=== PATIENT | female | born 1945 | race Hispanic/Latino ===

== ENCOUNTER 2017-07-22 10:15 | Outpatient (CLI) | payer MEDICARE | END 2017-07-22 10:16 | disposition home or self-care (01) | LOC: BICMAMMO 10:15 | PROVIDERS: ATTEND Family Medicine | DX: Z12.31 Encounter for screening mammogram for malignant neoplasm of breast (principal) | CPT/HCPCS: 77063; 77067 ==

== ENCOUNTER 2018-07-23 09:33 | Outpatient (CLI) | payer MEDICARE ==
--- NOTE | 2018-07-23 10:46 | MMO ---
Bilateral MAMMO Bilat Screen [facility]. CLINICAL HISTORY: Patient is 73 years old and is seen for screening. The patient has no family history of breast cancer. The patient has no personal history of cancer. The patient has a history of left Excisional Biopsy at an unknown age - benign. VIEWS: The views performed were: bilateral craniocaudal with tomosynthesis and bilateral mediolateral oblique with tomosynthesis. FILMS COMPARED: The present examination has been compared to prior imaging studies performed at [facility] on 07/22/2017, and at [facility] on 05/21/2012, 05/26/2014, 06/04/2015 and 06/30/2016. MAMMOGRAM FINDINGS: There are scattered fibroglandular densities. There are stable benign appearing calcifications seen in both breasts. There are also vascular calcifications. There are no suspicious masses, suspicious calcifications, or new areas of architectural distortion. IMPRESSION: THERE IS NO MAMMOGRAPHIC EVIDENCE OF MALIGNANCY. A ROUTINE FOLLOW-UP MAMMOGRAM IN 1 YEAR IS RECOMMENDED. THE RESULTS OF THIS EXAM WERE SENT TO THE PATIENT. ACR BI-RADS Category 2 - Benign finding MAMMOGRAPHY NOTE: 1. A negative mammogram report should not delay a biopsy if a dominant of clinically suspicious mass is present. 2. Approximately 10% to 15% of breast cancers are not detected by mammography. 3. Adenosis and dense breasts may obscure an underlying neoplasm.
== END 2018-07-23 09:34 | disposition home or self-care (01) ==
LOC: BICMAMMO 09:33
PROVIDERS: ATTEND Family Medicine
DX: Z12.31 Encounter for screening mammogram for malignant neoplasm of breast (principal)
CPT/HCPCS: 77063; 77067

== ENCOUNTER 2019-02-25 05:48 | Day surgery (SDC) | payer MEDICARE ==
[2019-02-24 08:14] VITALS: BMI 30.9
[2019-02-25] MEDS ORDERED: Levofloxacin 500 mg/D5W 100 ml Premix Bag ONE (06:39)
[2019-02-25 06:40] LABS: #Basophils 0.1 thou/uL (0.0-0.2); #Eosinphils 0.2 thou/uL (0.0-0.7); #Monocytes 0.7 thou/uL (0.11-0.59); #Neutrophils 6.7 thou/uL (1.40-6.50); %Basophils 0.7 % (0.0-1.0); %Eosinophils 1.9 % (0.0-10.0); %Lymphocytes 20.4 % (21.0-51.0); %Monocytes 7.7 % (0.0-10.0); %Neutrophils 69.3 % (42.0-75.0); Mean Corpuscular HGB CONC 34.2 g/dL (32.0-36.0); Mean Corpuscular Hemoglobin 29.1 pg (27.0-31.0); Mean Corpuscular Volume 85.1 fL (78.0-98.0); Mean Platelet Volume 5.7 fL (7.4-10.4); Platelet Count 286 thou/uL (130-400); RBC Distribution Width 11.9 % (11.5-14.5); Red Blood Cell (RBC) Count 3.76 mill/uL (4.20-5.40); White Blood Cell (WBC) Count 9.7 thou/uL (4.8-10.8)
[2019-02-25] MEDS ORDERED: Fentanyl 100 MCG/2 ML VIAL ONE ×2 (06:51→10:09)
[2019-02-25] MEDS ORDERED: Bupivacaine HCl 0.25%/Epi 0.0005/PF 10 ML VIAL FS ONE (07:00)
[2019-02-25 07:06] LABS: ALT (SGPT) 22 U/L (8-55); AST (SGOT) 19 U/L (5-34); Albumin 4.6 g/dL (3.4-4.8); Alkaline Phosphatase 83 U/L (40-110); Anion Gap 15 mmol/L (10-20); BUN (Urea Nitrogen) 21 mg/dL (9.8-20.1); Bilirubin, Total 0.3 mg/dL (0.2-1.2); Calc. Creatinine Clearance 50 mL/min (70-130); Calcium 9.4 mg/dL (7.8-10.44); Carbon Dioxide 26 mmol/L (23-31); Chloride 102 mmol/L (98-107); Estimated GFR-MDRD 45; Glucose 168 mg/dL (83-110); Potassium 3.8 mmol/L (3.5-5.1); Protein, Total 7.6 g/dL (6.0-8.3); Sodium 139 mmol/L (136-145)
[2019-02-25] MEDS ORDERED: Famotidine/PF 20 mg/2ml Vial ONE (07:11)
[2019-02-25] MEDS ORDERED: Ondansetron PF 4 MG/2 ML Vial ONE ×2 (07:12→10:51)
[2019-02-25] MEDS ORDERED: SUGAMMADEX SODIUM 200 MG/2 ML VIAL ONE (08:36)
[2019-02-25] MEDS ORDERED: Succinylcholine Chloride 20 MG/ML 10 ml SYRINGE FS ONE (10:51)
[2019-02-25] MEDS ORDERED: Lidocaine 1% PF 5 ML VIAL ONE (10:51)
[2019-02-25] MEDS ORDERED: Rocuronium Bromide 10 MG/ML (10ML VIAL) ONE (10:51)
[2019-02-25] MEDS ORDERED: PROPOFOL 200 MG/20 ML VIAL ONE (10:51)
--- NOTE | 2019-02-25 14:20 | EKG ---
Test Reason : PREOP Blood Pressure : / mmHG Vent. Rate : 087 BPM Atrial Rate : 087 BPM P-R Int : 188 ms QRS Dur : 072 ms QT Int : 382 ms P-R-T Axes : 029 017 022 degrees QTc Int : 459 ms Normal sinus rhythm Normal ECG When compared with ECG of 03-APR-2003 06:50, No significant change was found Confirmed by DR. Richelle ALONZO ([id number]) on 02/25/2019 2:19:25 PM Referred By: MAYDA Confirmed By:DR. Richelle ALONZO
--- NOTE | 2019-03-02 15:24 | PDOC.OP ---
Operative Note - Operative Note Operative Note: DATE OF PROCEDURE: 02/25/2019 PROCEDURES: Laparoscopic cholecystectomy. SURGEON: Constantin White M.D. PREOPERATIVE DIAGNOSIS: Symptomatic gallstones POSTOPERATIVE DIAGNOSIS: Symptomatic gallstones FINDINGS: Chronically distended gallbladder with stones and sludge. Fatty liver. HISTORY: Patient with symptoms of biliary colic. Laparoscopic cholecystectomy was recommended for symptomatic relief. Preoperative LFTs were normal and bile duct was normal caliber on preoperative imaging. PROCEDURE: After informed consent was obtained and appropriate preoperative antibiotics were administered, the patient was taken to the operating room and placed in the supine position and general endotracheal anesthesia was administered. The stomach was decompressed with an OG tube and the abdomen was prepped and draped in standard sterile fashion. Local anesthesia was infused to the skin and subcutaneous tissues at the umbilical level. A transverse skin incision was made. The fascia was elevated and a Veress needle was placed into the abdominal cavity without difficulty. Opening pressure was less than 5 and carbon dioxide gas easily insufflated to an intra-abdominal pressure of 15, which the patient tolerated well. The Veress needle was withdrawn and a Crabtree port advanced under direct vision. The abdominal cavity was carefully examined. There was no evidence of Veress needle or of trocar injury. Local anesthesia was infused to the skin and subcutaneous tissues at the epigastric, right upper quadrant, and right lateral abdominal sites and trocars were placed under direct vision of the laparoscope. The fundus of the gallbladder was grasped and retracted superiorly. The infundibulum was grasped and retracted laterally. The serosa was stripped inferiorly at the level of the neck of the gallbladder exposing the cystic duct and artery which were traced clearly to their insertion in the gallbladder. Critical view of safety was obtained and the cystic duct and artery were clipped and divided between clips. The gallbladder was then dissected free of the gallbladder bed using hook electrocautery. Prior to complete removal of the gallbladder from the gallbladder bed, the area of the cystic duct and artery stumps was examined. The clips were in good position completely across these structures and there was no bleeding and no leakage of bile. The gallbladder was then placed into an EndoCatch bag and drawn out through the epigastric incision. The epigastric trocar was replaced and the operative site easily irrigated to clear. There was no significant bleeding or spillage of bile. The epigastric trocar was removed and the fascia closed under direct laparoscopic vision with a 0 Vicryl suture on a GraNee needle in a [id number] manner with excellent technical result. The right upper quadrant and right lateral abdominal trocars were removed and hemostasis verified. Carbon dioxide gas was allowed to desufflate through the umbilical trocar which was then removed. The skin incisions were closed with 4- 0 subcuticular Monocryl sutures and Dermabond dressings were placed. The patient was extubated and taken to the recovery room in good condition. There were no complications. ESTIMATED BLOOD LOSS: Minimal. SPECIMEN : Gallbladder and contents.
== END 2019-02-25 11:45 | disposition home or self-care (01) ==
LOC: SDC 05:48
PROVIDERS: ATTEND Surgery
PROC: 0FT44ZZ Resection of Gallbladder, Percutaneous Endoscopic Approach (ICD-10-PCS; principal; 2019-02-25)
DX: K80.10 Calculus of gallbladder with chronic cholecystitis without obstruction (principal); K76.0 Fatty (change of) liver, not elsewhere classified; E11.9 Type 2 diabetes mellitus without complications; I10 Essential (primary) hypertension; E78.5 Hyperlipidemia, unspecified; Z79.82 Long term (current) use of aspirin; Z79.84 Long term (current) use of oral hypoglycemic drugs; Z79.899 Other long term (current) drug therapy; Z88.0 Allergy status to penicillin; Z88.1 Allergy status to other antibiotic agents; Z91.041 Radiographic dye allergy status
CPT/HCPCS: 36415; 80053; 85025; 88304; 93005; 93010; J0131; J1956; J2001; J2405; J2704; J3010; S0028

== ENCOUNTER 2019-08-16 15:14 | Outpatient (CLI) | payer MEDICARE ==
--- NOTE | 2019-08-16 15:37 | MMO ---
Bilateral MAMMO Bilat Screen [facility]. CLINICAL HISTORY: Patient is 74 years old and is seen for screening. The patient has no family history of breast cancer. The patient has no personal history of cancer. The patient has a history of left Excisional Biopsy at an unknown age - benign. VIEWS: The views performed were: bilateral craniocaudal with tomosynthesis and bilateral mediolateral oblique with tomosynthesis. FILMS COMPARED: The present examination has been compared to prior imaging studies performed at [facility] on 07/22/2017 and 07/23/2018, and at [facility] on 06/04/2015 and 06/30/2016. This study has been interpreted with the assistance of computer-aided detection. MAMMOGRAM FINDINGS: There are scattered fibroglandular densities. There are no suspicious masses, suspicious calcifications, or new areas of architectural distortion. IMPRESSION: THERE IS NO MAMMOGRAPHIC EVIDENCE OF MALIGNANCY. A ROUTINE FOLLOW-UP MAMMOGRAM IN 1 YEAR IS RECOMMENDED. THE RESULTS OF THIS EXAM WERE SENT TO THE PATIENT. ACR BI-RADS Category 1 - Negative MAMMOGRAPHY NOTE: 1. A negative mammogram report should not delay a biopsy if a dominant of clinically suspicious mass is present. 2. Approximately 10% to 15% of breast cancers are not detected by mammography. 3. Adenosis and dense breasts may obscure an underlying neoplasm. Reported by: SILVANA MAGUIRE MD Electonically Signed: [id number]
== END 2019-08-16 15:15 | disposition home or self-care (01) ==
LOC: BICMAMMO 15:14
PROVIDERS: ATTEND Family Medicine
DX: Z12.31 Encounter for screening mammogram for malignant neoplasm of breast (principal); Z91.89 Other specified personal risk factors, not elsewhere classified
CPT/HCPCS: 77063; 77067

== ENCOUNTER 2020-05-11 19:54 | Inpatient (IN) | payer MEDICARE ==
[2020-05-11 20:48] LABS: Band 17 % (5-11); Hemoglobin 10.7 g/dL (12.0-16.0); Lymphocytes 8 % (21-51); MDiff Complete? YES; Mean Corpuscular HGB CONC 34.9 g/dL (32.0-36.0); Mean Corpuscular Hemoglobin 29.8 pg (27.0-31.0); Mean Corpuscular Volume 85.4 fL (78.0-98.0); Mean Platelet Volume 6.1 fL (7.4-10.4); Monocytes 3 % (0-10); Neutrophil 71 % (42-75); Platelet Count 250 thou/uL (130-400); Platelet Morphology Comment Appears Adequate; RBC Distribution Width 12.1 % (11.5-14.5); White Blood Cell (WBC) Count 11.3 thou/uL (4.8-10.8)
[2020-05-11 20:49] LABS: ALT (SGPT) 18 U/L (8-55); AST (SGOT) 32 U/L (5-34); Albumin 3.7 g/dL (3.4-4.8); Alkaline Phosphatase 55 U/L (40-110); Anion Gap 18 mmol/L (10-20); BUN (Urea Nitrogen) 24 mg/dL (9.8-20.1); Bilirubin, Total 0.4 mg/dL (0.2-1.2); Calc. Creatinine Clearance 0 mL/min (70-130); Calcium 8.2 mg/dL (7.8-10.44); Carbon Dioxide 20 mmol/L (23-31); Chloride 95 mmol/L (98-107); Globulin 3.3 g/dL (2.4-3.5); Glucose 169 mg/dL (83-110); Potassium 3.7 mmol/L (3.5-5.1); Sodium 129 mmol/L (136-145)
[2020-05-11] MEDS ORDERED: Albuterol Sulfate 2.5 mg/3 ml Neb ONE (20:50)
[2020-05-11] MEDS ORDERED: Albuterol Sulfate 2.5 mg/3 ml Neb NEB PRN (21:39)
[2020-05-11 23:18] LABS: Lactic Acid 1.3 mmol/L (0.5-2.2)
[2020-05-11] MEDS ORDERED: Ondansetron PF 4 MG/2 ML Vial IVP PRN (23:32)
[2020-05-11] MEDS ORDERED: Ondansetron ODT 4 MG TAB PO PRN (23:32)
[2020-05-12 00:59] VITALS: BMI 30.9
[2020-05-12] MEDS ORDERED: Albuterol 200 PUFF (6.7GM INHALER) INH PRN ×2 (02:00→04:19)
[2020-05-12 02:16] LABS: #Lymphocytes 0.9 thou/uL (1.20-3.40); #Monocytes 0.4 thou/uL (0.11-0.59); #Neutrophils 9.4 thou/uL (1.40-6.50); %Eosinophils 0.1 % (0.0-10.0); %Lymphocytes 8.6 % (21.0-51.0); %Monocytes 3.3 % (0.0-10.0); Hemoglobin 10.4 g/dL (12.0-16.0); Mean Corpuscular HGB CONC 34.5 g/dL (32.0-36.0); Mean Corpuscular Hemoglobin 29.3 pg (27.0-31.0); Mean Corpuscular Volume 85.1 fL (78.0-98.0); Platelet Count 227 thou/uL (130-400); Red Blood Cell (RBC) Count 3.56 mill/uL (4.20-5.40); White Blood Cell (WBC) Count 10.7 thou/uL (4.8-10.8)
[2020-05-12 02:55] LABS: Anion Gap 19 mmol/L (10-20); BUN (Urea Nitrogen) 29 mg/dL (9.8-20.1); Calc. Creatinine Clearance 39 mL/min (70-130); Calcium 8.3 mg/dL (7.8-10.44); Carbon Dioxide 19 mmol/L (23-31); Chloride 94 mmol/L (98-107); Glucose 234 mg/dL (83-110); Potassium 3.7 mmol/L (3.5-5.1); Sodium 128 mmol/L (136-145)
[2020-05-12] MEDS ORDERED: Dextrose 5% in Water 1,000 ML IV PRN ×2 (03:20→14:29)
[2020-05-12] MEDS ORDERED: Dextrose 50% Abboject 50 ML SYRINGE SLOW IVP PRN ×2 (03:20→14:29)
[2020-05-12] MEDS: Albuterol 200 PUFF (6.7GM INHALER) INH SCH ×5 (06:21→22:52)
[2020-05-12] MEDS: cefTRIAXone\\ROCEPHIN 1 GM in Sodium Chloride 0.9% 100 ML IVPB SCH (06:21)
[2020-05-12] MEDS: Azithromycin 500 MG in Sodium Chloride 0.9% 250 ML 250 ML IVPB SCH (06:22)
[2020-05-12] MEDS: Zinc Sulfate 220 MG CAP PO SCH (07:54)
[2020-05-12] MEDS: Ascorbic Acid 500 mg Chewable Tablet PO SCH (07:54)
[2020-05-12] MEDS: Dexamethasone 4 mg/ml Vial SLOW IVP SCH (07:54)
[2020-05-12] MEDS: Cholecalciferol (Vitamin D3) 400 UNITS TAB PO SCH (07:54)
[2020-05-12] MEDS ORDERED: REMDESIVIR (EUA) 200 MG in Sodium Chloride 0.9% 250 ML 210 ML IV SCH (09:00)
[2020-05-12] MEDS ORDERED: Enoxaparin Sodium 40 MG/0.4 ML SYRINGE SC SCH (09:00)
[2020-05-12] MEDS ORDERED: Dexamethasone 4 mg/ml Vial SLOW IVP SCH (09:00)
[2020-05-12] MEDS ORDERED: methylPREDNISolone Sod Succ 40 MG VIAL IVP SCH (09:00)
[2020-05-12] MEDS: Acetaminophen 325 MG TAB PO PRN (10:58)
[2020-05-12] MEDS: HumaLOG 300 UNITS/3 ML VIAL SC PRN ×2 (13:55→17:15)
[2020-05-12] MEDS ORDERED: Non-Formulary Item 1 EACH (Albuterol Sulfate [Proventil Hfa] 200 PUFF Inh) INH PRN (14:28)
[2020-05-12] MEDS ORDERED: HumaLOG 300 UNITS/3 ML VIAL SC PRN (14:29)
[2020-05-12 14:50] LABS: SARS-CoV-2 NAA Rapid Test DETECTED (NotDetected)
[2020-05-12] MEDS: Atorvastatin Calcium 10 MG TAB PO SCH (21:30)
[2020-05-12] MEDS: Enoxaparin Sodium 80 MG/0.8 ML SYRINGE SC SCH (21:31)
[2020-05-13] MEDS: Acetaminophen 325 MG TAB PO PRN ×3 (00:09→23:55)
[2020-05-13] MEDS: Albuterol 200 PUFF (6.7GM INHALER) INH SCH ×6 (02:26→23:05)
[2020-05-13] MEDS: cefTRIAXone\\ROCEPHIN 1 GM in Sodium Chloride 0.9% 100 ML IVPB SCH (04:15)
[2020-05-13 05:56] LABS: #Basophils 0.4 thou/uL (0.0-0.2); #Lymphocytes 0.7 thou/uL (1.20-3.40); #Monocytes 0.7 thou/uL (0.11-0.59); %Basophils 2.9 % (0.0-1.0); %Eosinophils 0.2 % (0.0-10.0); %Lymphocytes 5.3 % (21.0-51.0); %Monocytes 5.3 % (0.0-10.0); %Neutrophils 86.3 % (42.0-75.0); Hemoglobin 10.5 g/dL (12.0-16.0); Mean Corpuscular HGB CONC 32.6 g/dL (32.0-36.0); Mean Corpuscular Hemoglobin 27.8 pg (27.0-31.0); Mean Corpuscular Volume 85.4 fL (78.0-98.0); Mean Platelet Volume 5.8 fL (7.4-10.4); Platelet Count 324 thou/uL (130-400); RBC Distribution Width 12.2 % (11.5-14.5); Red Blood Cell (RBC) Count 3.78 mill/uL (4.20-5.40); White Blood Cell (WBC) Count 13.9 thou/uL (4.8-10.8)
[2020-05-13 06:06] LABS: D-Dimer Test 3.05 *mcg/mL (0.27-0.43)
[2020-05-13] MEDS: Azithromycin 500 MG in Sodium Chloride 0.9% 250 ML 250 ML IVPB SCH (06:22)
[2020-05-13 06:23] LABS: Anion Gap 18 mmol/L (10-20); BUN (Urea Nitrogen) 23 mg/dL (9.8-20.1); CRP (Inflammatory) 19.77 mg/dL (= or < 0.5); Calc. Creatinine Clearance 54 mL/min (70-130); Calcium 8.6 mg/dL (7.8-10.44); Carbon Dioxide 22 mmol/L (23-31); Chloride 98 mmol/L (98-107); Glucose 159 mg/dL (83-110); Potassium 3.6 mmol/L (3.5-5.1); Sodium 134 mmol/L (136-145)
[2020-05-13] MEDS: HumaLOG 300 UNITS/3 ML VIAL SC PRN ×3 (06:23→17:14)
[2020-05-13] MEDS: Zinc Sulfate 220 MG CAP PO SCH (08:36)
[2020-05-13] MEDS: Ascorbic Acid 500 mg Chewable Tablet PO SCH (08:36)
[2020-05-13] MEDS: Cholecalciferol (Vitamin D3) 400 UNITS TAB PO SCH (08:36)
[2020-05-13] MEDS: Dexamethasone 4 mg/ml Vial SLOW IVP SCH (08:37)
[2020-05-13] MEDS: Enoxaparin Sodium 80 MG/0.8 ML SYRINGE SC SCH ×2 (08:37→23:04)
[2020-05-13] MEDS ORDERED: REMDESIVIR (EUA) 100 MG in Sodium Chloride 0.9% 250 ML 230 ML IV SCH (09:00)
[2020-05-13] MEDS: Atorvastatin Calcium 10 MG TAB PO SCH (23:05)
[2020-05-14] MEDS: Albuterol 200 PUFF (6.7GM INHALER) INH SCH ×6 (02:52→21:30)
[2020-05-14] MEDS: Azithromycin 500 MG in Sodium Chloride 0.9% 250 ML 250 ML IVPB SCH (05:31)
[2020-05-14] MEDS: cefTRIAXone\\ROCEPHIN 1 GM in Sodium Chloride 0.9% 100 ML IVPB SCH (05:31)
[2020-05-14 05:45] LABS: #Basophils 0.4 thou/uL (0.0-0.2); #Monocytes 1.3 thou/uL (0.11-0.59); %Basophils 2.4 % (0.0-1.0); %Eosinophils 0.2 % (0.0-10.0); %Lymphocytes 6.3 % (21.0-51.0); %Monocytes 8.4 % (0.0-10.0); %Neutrophils 82.7 % (42.0-75.0); Hemoglobin 10.9 g/dL (12.0-16.0); Mean Corpuscular Hemoglobin 28.2 pg (27.0-31.0); Mean Corpuscular Volume 85.4 fL (78.0-98.0); Mean Platelet Volume 5.7 fL (7.4-10.4); Platelet Count 386 thou/uL (130-400); RBC Distribution Width 12.1 % (11.5-14.5); Red Blood Cell (RBC) Count 3.87 mill/uL (4.20-5.40); White Blood Cell (WBC) Count 15.7 thou/uL (4.8-10.8)
[2020-05-14 06:25] LABS: Anion Gap 16 mmol/L (10-20); BUN (Urea Nitrogen) 26 mg/dL (9.8-20.1); Calc. Creatinine Clearance 62 mL/min (70-130); Carbon Dioxide 25 mmol/L (23-31); Chloride 100 mmol/L (98-107); Potassium 3.6 mmol/L (3.5-5.1); Sodium 137 mmol/L (136-145)
[2020-05-14 06:26] LABS: Calcium 8.8 mg/dL (7.8-10.44); Glucose 142 mg/dL (83-110)
[2020-05-14 06:53] LABS: D-Dimer Test 4.34 *mcg/mL (0.27-0.43)
[2020-05-14] MEDS: Zinc Sulfate 220 MG CAP PO SCH (07:50)
[2020-05-14] MEDS: Cholecalciferol (Vitamin D3) 400 UNITS TAB PO SCH (07:50)
[2020-05-14] MEDS: Enoxaparin Sodium 80 MG/0.8 ML SYRINGE SC SCH ×2 (07:50→21:20)
[2020-05-14] MEDS: Ascorbic Acid 500 mg Chewable Tablet PO SCH (07:50)
[2020-05-14] MEDS: Dexamethasone 4 mg/ml Vial SLOW IVP SCH (07:50)
[2020-05-14] MEDS ORDERED: hydrALAZINE 20 MG/ML VIAL SLOW IVP PRN (10:34)
[2020-05-14] MEDS: Atorvastatin Calcium 10 MG TAB PO SCH (21:20)
[2020-05-15] MEDS: Acetaminophen 325 MG TAB PO PRN ×3 (02:00→20:15)
[2020-05-15] MEDS: Albuterol 200 PUFF (6.7GM INHALER) INH SCH ×6 (02:10→22:00)
[2020-05-15] MEDS: Enoxaparin Sodium 80 MG/0.8 ML SYRINGE SC SCH ×2 (07:38→20:15)
[2020-05-15] MEDS: Dexamethasone 4 mg/ml Vial SLOW IVP SCH (07:38)
[2020-05-15] MEDS: Ascorbic Acid 500 mg Chewable Tablet PO SCH (07:38)
[2020-05-15] MEDS: Zinc Sulfate 220 MG CAP PO SCH (07:39)
[2020-05-15] MEDS: Cholecalciferol (Vitamin D3) 400 UNITS TAB PO SCH (07:39)
[2020-05-15] MEDS: Lorazepam 0.5 MG TAB PO PRN ×3 (11:29→22:00)
[2020-05-15] MEDS: Atorvastatin Calcium 10 MG TAB PO SCH (20:15)
[2020-05-16] MEDS ORDERED: Morphine 2 MG/ML VIAL SLOW IVP SCH (01:15)
[2020-05-16] MEDS: Lorazepam 2 MG/ML VIAL SLOW IVP PRN ×4 (02:00→15:28)
[2020-05-16] MEDS: Albuterol 200 PUFF (6.7GM INHALER) INH SCH ×5 (02:25→18:02)
[2020-05-16] MEDS: Enoxaparin Sodium 80 MG/0.8 ML SYRINGE SC SCH (11:09)
[2020-05-16] MEDS: Dexamethasone 4 mg/ml Vial SLOW IVP SCH (11:10)
[2020-05-16] MEDS: Ascorbic Acid 500 mg Chewable Tablet PO SCH (12:42)
[2020-05-16] MEDS: Zinc Sulfate 220 MG CAP PO SCH (12:43)
[2020-05-16] MEDS: Cholecalciferol (Vitamin D3) 400 UNITS TAB PO SCH (12:43)
[2020-05-16] MEDS: Metoprolol Tartrate 5 MG/5 ML VIAL IVP SCH ×2 (12:44→18:05)
[2020-05-16] MEDS ORDERED: Lorazepam 2 MG/ML VIAL SLOW IVP PRN (15:43)
[2020-05-16 16:22] LABS: Hemoglobin 11.1 g/dL (12.0-16.0); Mean Corpuscular HGB CONC 33.5 g/dL (32.0-36.0); Mean Corpuscular Hemoglobin 29.4 pg (27.0-31.0); Mean Corpuscular Volume 87.8 fL (78.0-98.0); Mean Platelet Volume 6.4 fL (7.4-10.4); Platelet Count 267 thou/uL (130-400); RBC Distribution Width 12.6 % (11.5-14.5); Red Blood Cell (RBC) Count 3.77 mill/uL (4.20-5.40); White Blood Cell (WBC) Count 25.6 thou/uL (4.8-10.8)
[2020-05-16 16:24] LABS: Anion Gap 23 mmol/L (10-20); BUN (Urea Nitrogen) 48 mg/dL (9.8-20.1); Calc. Creatinine Clearance 45 mL/min (70-130); Calcium 8.8 mg/dL (7.8-10.44); Carbon Dioxide 21 mmol/L (23-31); Chloride 102 mmol/L (98-107); Glucose 314 mg/dL (83-110); Sodium 142 mmol/L (136-145)
[2020-05-16 16:41] LABS: Band 2 % (5-11); Lymphocytes 8 % (21-51); MDiff Complete? YES; Metamyelocyte 2 % (0-0); Monocytes 2 % (0-10); Neutrophil 84 % (42-75); Platelet Morphology Comment Appears Adequate; Polychromasia SLIGHT = 2-3 cells (100X) (0-2/hpf); Reactive Lymphocytes 2 % (0-10)
[2020-05-16 16:52] VITALS: TEMP 97.8
[2020-05-16 19:19] VITALS: BP 175/82
== END 2020-05-16 19:00 | disposition hospice, inpatient (51) | DRG 871 ==
LOC: ERS 19:54 → ERHOLD 21:25 → 2SW 05-12 00:29
PROVIDERS: ADMIT Student in an Organized Health Care Education/Training Program; ATTEND Internal Medicine
PROC: 8E0ZXY6 Isolation (ICD-10-PCS; principal; 2020-05-11)
PROC: 5A09457 Assistance with Respiratory Ventilation, 24-96 Consecutive Hours, Continuous Positive Airway Pressure (ICD-10-PCS; 2020-05-11)
PROC: XW033E5 Introduction of Remdesivir Anti-infective into Peripheral Vein, Percutaneous Approach, New Technology Group 5 (ICD-10-PCS; 2020-05-12)
PROC: XW13325 Transfusion of Convalescent Plasma (Nonautologous) into Peripheral Vein, Percutaneous Approach, New Technology Group 5 (ICD-10-PCS; 2020-05-12)
DX: A41.89 Other specified sepsis (principal); U07.1 COVID-19; J12.82 Pneumonia due to coronavirus disease 2019; J96.01 Acute respiratory failure with hypoxia; E87.1 Hypo-osmolality and hyponatremia; J45.901 Unspecified asthma with (acute) exacerbation; E87.2 Acidosis; R65.20 Severe sepsis without septic shock; Z66 Do not resuscitate; Z51.5 Encounter for palliative care; D64.9 Anemia, unspecified; I10 Essential (primary) hypertension; E78.00 Pure hypercholesterolemia, unspecified; F41.9 Anxiety disorder, unspecified; E11.9 Type 2 diabetes mellitus without complications; Z88.0 Allergy status to penicillin; Z91.041 Radiographic dye allergy status; Z79.84 Long term (current) use of oral hypoglycemic drugs; Z79.51 Long term (current) use of inhaled steroids; Z79.899 Other long term (current) drug therapy; Z90.710 Acquired absence of both cervix and uterus
CPT/HCPCS: 36415; 36416; 36430; 71045; 80048; 80053; 82728; 83605; 83735; 85025; 85379; 85384; 86140; 86141; 86850; 86900; 86901; 87040; 93005; 94640; 94660; 94760; J0360; J0456; J0696; J1100; J1650; J2060; J2270; J3490; J7050; J7611; P9017; U0002

== ENCOUNTER 2020-05-16 19:19 | Inpatient (IN) | payer OTHER ==
[2020-05-16] MEDS ORDERED: Morphine 2 MG/ML VIAL SLOW IVP PRN (19:35)
[2020-05-16] MEDS ORDERED: Bisacodyl 10 MG SUPP PR PRN (19:35)
[2020-05-16] MEDS ORDERED: Lorazepam 2 MG/ML VIAL SLOW IVP PRN ×2 (19:36→19:37)
[2020-05-16 19:44] VITALS: BMI 30.7
[2020-05-16] MEDS ORDERED: Morphine 4 MG/ML VIAL SLOW IVP SCH (20:00)
[2020-05-16] MEDS ORDERED: Lorazepam 2 MG/ML VIAL SLOW IVP SCH (20:00)
[2020-05-16] MEDS: Morphine 4 MG/ML VIAL SLOW IVP PRN ×2 (20:14→20:31)
[2020-05-16 20:38] VITALS: BP 151/78
== END 2020-05-16 21:12 | disposition expired | DRG 951 ==
LOC: 2SW 19:19
PROVIDERS: ADMIT Internal Medicine; ATTEND Internal Medicine
DX: Z51.5 Encounter for palliative care (principal); J96.01 Acute respiratory failure with hypoxia; U07.1 COVID-19; J12.82 Pneumonia due to coronavirus disease 2019; E87.1 Hypo-osmolality and hyponatremia; J45.901 Unspecified asthma with (acute) exacerbation; E87.2 Acidosis; I10 Essential (primary) hypertension; E78.00 Pure hypercholesterolemia, unspecified; J45.909 Unspecified asthma, uncomplicated; D64.9 Anemia, unspecified; E11.9 Type 2 diabetes mellitus without complications; Z88.0 Allergy status to penicillin; Z90.710 Acquired absence of both cervix and uterus
CPT/HCPCS: J2060; J2270